=== PATIENT | male | born 1975 | race African-American/Black ===

== ENCOUNTER 2018-01-12 11:19 | Inpatient (IN) | payer OTHER ==
[2018-01-12 12:37] VITALS: BMI 31.7
--- NOTE | 2018-01-12 13:42 | HP ---
CIWA Score - CIWA Score Nausea/Vomitin-Mild Nausea/No Vomiting Muscle Tremors: 4-Moderate,w/Arms Extend Anxiety: 4-Mod. Anxious/Guarded Agitation: 4-Moderately Restless Paroxysmal Sweats: 1-Minimal Palms Moist Orientation: 0-Oriented Tacttile Disturbances: 0-None Auditory Disturbances: 0-None Visual Disturbances: 0-None Headache: 0-None Present CIWA-Ar Total Score: 14 Admission ROS BHS - HPI Chief Complaint: alcohol withdrawal sx Allergies/Adverse Reactions: Allergies Allergy/AdvReac Type Severity Reaction Status Date / Time No Known Allergies Allergy Verified 01/12/18 13:44 History of Present Illness: 42 years old male with long history of alcohol nicotine dependence has anxiety and last substance detox [facility] 10/2017 is admitted to detox Exam Limitations: No Limitations - Ebola screening Have you traveled outside of the country in the last 21 days: No (N) Have you had contact with anyone from an Ebola affected area: No Have you been sick,other than usual withdrawal symptoms: No Do you have a fever: No - Review of Systems Constitutional: Changes in sleep, Weight Stable EENT: reports: No Symptoms Reported Respiratory: reports: No Symptoms reported Cardiac: reports: No Symptoms Reported GI: reports: Nausea, Poor Fluid Intake, Abdominal cramping : reports: No Symptoms Reported Musculoskeletal: reports: No Symptoms Reported Integumentary: reports: No Symptoms Reported Neuro: reports: Tremors Endocrine: reports: No Symptoms Reported Hematology: reports: No Symptoms Reported Psychiatric: reports: Judgement Intact, Orientated x3, Anxious, Depressed Other Systems: Reviewed and Negative Patient History - Patient Medical History Hx Anemia: No Hx Asthma: No Hx Chronic Obstructive Pulmonary Disease (COPD): No Hx Cancer: No Hx Cardiac Disorders: No Hx Congestive Heart Failure: No Hx Hypertension: Yes Hx Hypercholesterolemia: No Hx Pacemaker: No HX Cerebrovascular Accident: No Hx Seizures: No Hx Dementia: No Hx Diabetes: Yes (no treatment x 3 years) Hx Gastrointestinal Disorders: No Hx Liver Disease: No Hx Genitourinary Disorders: No Hx Sexually Transmitted Disorders: Yes (syphilis treated x 3 IM) Hx Renal Disease (ESRD): No Hx Thyroid Disease: No Hx Human Immunodeficiency Virus (HIV): No Hx Hepatitis C: No Hx Depression: Yes Hx Suicide Attempt: No Hx Bipolar Disorder: No Hx Schizophrenia: No - Patient Surgical History Past Surgical History: No - PPD History Previous Implant?: Yes Documented Results: Negative w/o proof Implanted On Prior [facility] Admission?: No PPD to be Administered?: Yes - Smoking Cessation Smoking history: Current every day smoker Have you smoked in the past 12 months: Yes Aproximately how many cigarettes per day: 20 Cigars Per Day: 0 Hx Chewing Tobacco Use: No Initiated information on smoking cessation: Yes 'Breaking Loose' booklet given: 01/12/18 - Substance & Tx. History Hx Alcohol Use: Yes Hx Substance Use: No Substance Use Type: Alcohol, Cocaine Hx Substance Use Treatment: Yes (10/2017 [facility]) Family Disease History - Family Disease History Family Disease History: Diabetes: Grandparent, Mother, Heart Disease: Grandparent, Mother, Other: Father (no contact) Admission Physical Exam BHS - Vital Signs Vital Signs: Vital Signs - 24 hr 01/12/18 12:30 Temperature 98.9 F Pulse Rate 92 H Respiratory 20 Rate Blood Pressure 157/82 - Physical General Appearance: Yes: Nourished, Appropriately Dressed, Mild Distress, Alcohol on Breath, Tremorous, Irritable, Sweating, Anxious HEENTM: Yes: Hearing grossly Normal, Normocephalic, Normal Voice Respiratory: Yes: Chest Non-Tender, Lungs Clear, Normal Breath Sounds, No Respiratory Distress, No Accessory Muscle Use Neck: Yes: Supple, Trachea in good position Breast: Yes: Breasts Symetrical, No Discharge Cardiology: Yes: Regular Rhythm, S1, S2, Tachycardia Abdominal: Yes: Normal Bowel Sounds, Non Tender, Flat, Soft Genitourinary: Yes: Within Normal Limits Back: Yes: Normal Inspection Musculoskeletal: Yes: full range of Motion, Gait Steady, Back pain, Muscle Pain Extremities: Yes: Normal Inspection, Normal Range of Motion, Non-Tender, Tremors Neurological: Yes: Fully Oriented, Alert, Motor Strength 5/5, Normal Response, Depressed Affect Integumentary: Yes: Warm Lymphatic: Yes: Within Normal Limits - Diagnostic (1) Alcohol dependence with uncomplicated withdrawal Current Visit: Yes Status: Acute (2) Nicotine dependence Current Visit: Yes Status: Acute Qualifiers: Nicotine product type: cigarettes Substance use status: in withdrawal Qualified Code(s): F17.213 - Nicotine dependence, cigarettes, with withdrawal (3) History of hypertension Current Visit: Yes Status: Chronic Comment: no treatment x 3 years (4) History of diabetes mellitus, type II Current Visit: Yes Status: Chronic Comment: no treatment x 3 years Cleared for Admission [facility] - Detox or Rehab [facility] Level of Care: Medically Managed Detox Regimen/Protocol: Librium [facility] Breath Alcohol Content Breath Alcohol Content: 0.013 Urine Drug Screen - Control Is Test Valid: Yes - Results Drug Screen Negative: No Urine Drug Screen Results: CARIDAD-Cocaine
[2018-01-12] MEDS ORDERED: MAGNESIUM CITRATE 300 ML BOTTLE PO PRN (13:45)
[2018-01-12] MEDS ORDERED: LOPERAMIDE HCL 2 MG CAPSULE PO PRN (13:45)
[2018-01-12] MEDS ORDERED: MAG HYDROX/AL HYDROX/SIMETH 30 ML UNIT-DOSE CUP PO PRN (13:45)
[2018-01-12] MEDS ORDERED: P-EPHED 60MG/TRIPROLIDI 2.5MG TABLET PO PRN (13:45)
[2018-01-12] MEDS ORDERED: MAGNESIUM HYDROX 2400MG/30ML ORAL SUSPENSION 30 ML CUP PO PRN (13:45)
[2018-01-12] MEDS ORDERED: guaiFENesin/D-METHORPHAN HB 10 ML UNIT-DOSE CUPS PO PRN (13:45)
[2018-01-12] MEDS ORDERED: chlordiazePOXIDE HCL 25 MG CAPSULE PO PRN (13:45)
[2018-01-12] MEDS ORDERED: MENTHOL/PHENOL 1 EACH UD MM PRN (13:45)
[2018-01-12] MEDS ORDERED: IBUPROFEN 400 MG TABLET (FP) PO PRN (13:45)
[2018-01-12] MEDS ORDERED: NICOTINE POLACRILEX 4 MG GUM BUC PRN (13:45)
[2018-01-12] MEDS: chlordiazePOXIDE HCL 25 MG CAPSULE PO SCH ×2 (17:15→22:12)
[2018-01-12] MEDS: NICOTINE 21 MG/24 HOURS TOPICAL PATCH TD SCH (17:19)
[2018-01-12 17:27] LABS: URINE APPEARANCE CLEAR; URINE BILIRUBIN NEGATIVE (<2.0 mg/dL); URINE COLOR YELLOW; URINE GLUCOSE (UA) NEGATIVE (NEGATIVE); URINE KETONE NEGATIVE (NEGATIVE); URINE LEUK ESTERASE NEGATIVE (NEGATIVE); URINE NITRITE NEGATIVE (NEGATIVE); URINE PROTEIN NEGATIVE (NEGATIVE); URINE UROBILINOGEN 4.0 E.U/dl mg/dL (0.2-1.0)
[2018-01-12] MEDS ORDERED: MELATONIN 5 MG TABLETS PO PRN (22:00)
[2018-01-12] MEDS: THIAMINE HCL 100 MG TABLET (FP) PO SCH (22:11)
[2018-01-13] MEDS: chlordiazePOXIDE HCL 25 MG CAPSULE PO SCH ×4 (05:28→22:10)
[2018-01-13 09:49] LABS: ALBUMIN 3.6 g/dl (3.4-5.0); ALK PHOS 74 U/L (45-117); ANION GAP 7 (8-16); BILIRUBIN,TOTAL 0.4 mg/dL (0.2-1.0); BLOOD UREA NITROGEN 14 mg/dL (7-18); CALCIUM 8.7 mg/dL (8.5-10.1); CHLORIDE 107 mmol/L (98-107); CO2 28 mmol/L (21-32); CREATININE 0.9 mg/dL (0.7-1.3); POTASSIUM 4.2 mmol/L (3.5-5.1); SGOT/AST 42 U/L (15-37); SGPT/ALT 42 U/L (12-78); SODIUM 142 mmol/L (136-145)
[2018-01-13 09:51] LABS: GLUCOSE,RANDOM 85 mg/dL (74-106); HEMATOCRIT 42.3 % (35.4-49); HEMOGLOBIN 14.2 GM/dL (11.7-16.9); MCH 29.5 pg (25.7-33.7); MCHC 33.5 g/dl (32.0-35.9); MEAN CELL VOLUME 88.1 fl (80-96); MEAN PLT VOLUME 10.5 fl (7.5-11.1); PLATELET COUNT 193 K/MM3 (134-434); RDW 14.5 % (11.9-15.9); WHITE BLOOD COUNT 8.7 K/mm3 (4.0-10.0)
[2018-01-13] MEDS: PRENATAL VITAMINS W/ FOLIC ACID TABLET (FP) PO SCH (10:35)
[2018-01-13] MEDS: NICOTINE 21 MG/24 HOURS TOPICAL PATCH TD SCH (10:35)
--- NOTE | 2018-01-13 12:54 | PN ---
S CIWA - CIWA Score Nausea/Vomitin-No Nausea/No Vomiting Muscle Tremors: 4-Moderate,w/Arms Extend Anxiety: 4-Mod. Anxious/Guarded Agitation: 4-Moderately Restless Paroxysmal Sweats: 1-Minimal Palms Moist Orientation: 0-Oriented Tacttile Disturbances: 0-None Auditory Disturbances: 0-None Visual Disturbances: 0-None Headache: 2-Mild CIWA-Ar Total Score: 15 BHS Progress Note (SOAP) Subjective: ANXIETY,SWEATS,HEADACHE,FATIGUE, INTERMITTENT SLEEP. Objective: 01/13/18 12:53 Vital Signs 01/13/18 01/13/18 06:09 09:09 Temperature 98.2 F 97.7 F Pulse Rate 96 H 69 Respiratory 18 18 Rate Blood Pressure 127/85 126/83 Laboratory Tests 01/12/18 01/13/18 01/13/18 16:10 06:00 06:00 WBC 8.7 RBC 4.80 Hgb 14.2 Hct 42.3 MCV 88.1 MCH 29.5 MCHC 33.5 RDW 14.5 Plt Count 193 MPV 10.5 Sodium 142 Potassium 4.2 Chloride 107 Carbon Dioxide 28 Anion Gap 7 L BUN 14 Creatinine 0.9 Creat Clearance w eGFR > 60 Random Glucose 85 Calcium 8.7 Total Bilirubin 0.4 AST 42 H ALT 42 Alkaline Phosphatase 74 Total Protein 7.0 Albumin 3.6 Urine Color Yellow Urine Appearance Clear Urine pH 6.0 Ur Specific [place] 1.020 Urine Protein Negative Urine Glucose (UA) Negative Urine Ketones Negative Urine Blood Negative Urine Nitrite Negative Urine Bilirubin Negative Urine Urobilinogen 4.0 e.u/dl Ur Leukocyte Esterase Negative RPR Titer 01/13/18 06:00 WBC RBC Hgb Hct MCV MCH MCHC RDW Plt Count MPV Sodium Potassium Chloride Carbon Dioxide Anion Gap BUN Creatinine Creat Clearance w eGFR Random Glucose Calcium Total Bilirubin AST ALT Alkaline Phosphatase Total Protein Albumin Urine Color Urine Appearance Urine pH Ur Specific [place] Urine Protein Urine Glucose (UA) Urine Ketones Urine Blood Urine Nitrite Urine Bilirubin Urine Urobilinogen Ur Leukocyte Esterase RPR Titer Nonreactive Assessment: 01/13/18 12:53 WITHDRAWAL SX Plan: CONTINUE DETOX. TYLENOL OR MOTRIN PRN FOR HEADACHE.
--- NOTE | 2018-01-13 13:58 | EKG ---
Test Reason : Blood Pressure : / mmHG Vent. Rate : 068 BPM Atrial Rate : 068 BPM P-R Int : 154 ms QRS Dur : 082 ms QT Int : 392 ms P-R-T Axes : 056 010 013 degrees QTc Int : 416 ms NORMAL SINUS RHYTHM WITH SINUS ARRHYTHMIA POSSIBLE LEFT ATRIAL ENLARGEMENT BORDERLINE ECG NO PREVIOUS ECGS AVAILABLE Confirmed by Marko Fagan MD ([id number]) on 01/13/2018 1:57:30 PM Referred By: Confirmed By:Marko Fagan MD
--- NOTE | 2018-01-13 17:06 | CONSULT ---
[facility] Psychiatric Consult - Data Date of interview: 01/13/18 Admission source: [facility] Identifying data: First admission to [facility] for this 42 y/o AA male seeking detox treatment on for alcohol and cocaine (crack) dependence.Patient is single without dependents,homeless,unemployed and supported on food stamps. Substance Abuse History: Confirmed by patient in this session.Smoking history: Current every day smoker. Have you smoked in the past 12 months: Yes. Aproximately how many cigarettes per day: 20. Cigars Per Day: 0. Hx Chewing Tobacco Use: No. Initiated information on smoking cessation: Yes. 'Breaking Loose' booklet given: 01/12/18. - Substance & Tx. History. Hx Alcohol Use: Yes. Hx Substance Use: No. Substance Use Type: Alcohol, Cocaine. Hx Substance Use Treatment: Yes (10/2017 [facility] Medical History: Hypertension,diabetes mellitus and a history of treatment for syphilis. Psychiatric History: Patient denies. Physical/Sexual Abuse/Trauma History: Patient denies. Additional Comment: Urine Drug Screen Results: CARIDAD-Cocaine.Noted. Mental Status Exam - Mental Status Exam Alert and Oriented to: Time, Place, Person Cognitive Function: Good Patient Appearance: Well Groomed Mood: Withdrawn Affect: Appropriate, Normal Range Patient Behavior: Fatigued, Appropriate, Cooperative Speech Pattern: Clear, Appropriate Voice Loudness: Normal Thought Process: Intact, Goal Oriented Thought Disorder: Not Present Hallucinations: Denies Suicidal Ideation: Denies Homicidal Ideation: Denies Insight/Judgement: Poor Sleep: Poorly, Difficulty falling asleep Appetite: Good Muscle strength/Tone: Normal Gait/Station: Normal Psychiatric Findings - Problem List ([place] 1, 2,3) (1) Alcohol dependence with uncomplicated withdrawal Current Visit: Yes Status: Acute (2) Cocaine dependence Current Visit: Yes Status: Acute (3) Nicotine dependence Current Visit: Yes Status: Acute Qualifiers: Nicotine product type: cigarettes Substance use status: in withdrawal Qualified Code(s): F17.213 - Nicotine dependence, cigarettes, with withdrawal (4) Insomnia Current Visit: Yes Status: Acute - Initial Treatment Plan Initial Treatment Plan: Psychoeducation.Sleep hygiene.Detoxification.Ambien 10 mg po hs prn.Patient is made aware of parasomnias.Agrees to this careplan.Observation.
[2018-01-13] MEDS: THIAMINE HCL 100 MG TABLET (FP) PO SCH (22:10)
[2018-01-13] MEDS: ZOLPIDEM TARTRATE 10 MG TABLET (PARK CARE ONLY) PO PRN (22:10)
[2018-01-14] MEDS: chlordiazePOXIDE HCL 25 MG CAPSULE PO SCH ×2 (05:27→10:50)
[2018-01-14] MEDS: ACETAMINOPHEN 325 MG TABLET (FP) PO PRN (08:42)
[2018-01-14] MEDS: PRENATAL VITAMINS W/ FOLIC ACID TABLET (FP) PO SCH (10:49)
[2018-01-14] MEDS: NICOTINE 21 MG/24 HOURS TOPICAL PATCH TD SCH (10:49)
--- NOTE | 2018-01-14 11:43 | PN ---
[facility] CIWA - CIWA Score Nausea/Vomitin (DIARRHEA) Muscle Tremors: 4-Moderate,w/Arms Extend Anxiety: 4-Mod. Anxious/Guarded Agitation: 3 Paroxysmal Sweats: 1-Minimal Palms Moist Orientation: 0-Oriented Tacttile Disturbances: 0-None Auditory Disturbances: 0-None Visual Disturbances: 0-None Headache: 0-None Present CIWA-Ar Total Score: 15 BHS Progress Note (SOAP) Subjective: PT STATES FEELING "TERRIBLE". C/O DIARRHEA X 4 LAST NIGHT. PT REPORTS IMODIUM GIVEN. ANXIETY,INTERMITTENT SLEEP,FATIGUE. Objective: 01/14/18 11:41 Vital Signs 01/14/18 01/14/18 01/14/18 06:15 09:17 09:18 Temperature 98.5 F 98.6 F 98.6 F Pulse Rate 75 75 75 Respiratory 18 18 18 Rate Blood Pressure 117/75 135/87 135/87 Laboratory Tests 01/12/18 01/13/18 01/13/18 16:10 06:00 06:00 WBC 8.7 RBC 4.80 Hgb 14.2 Hct 42.3 MCV 88.1 MCH 29.5 MCHC 33.5 RDW 14.5 Plt Count 193 MPV 10.5 Sodium 142 Potassium 4.2 Chloride 107 Carbon Dioxide 28 Anion Gap 7 L BUN 14 Creatinine 0.9 Creat Clearance w eGFR > 60 Random Glucose 85 Calcium 8.7 Total Bilirubin 0.4 AST 42 H ALT 42 Alkaline Phosphatase 74 Total Protein 7.0 Albumin 3.6 Urine Color Yellow Urine Appearance Clear Urine pH 6.0 Ur Specific [place] 1.020 Urine Protein Negative Urine Glucose (UA) Negative Urine Ketones Negative Urine Blood Negative Urine Nitrite Negative Urine Bilirubin Negative Urine Urobilinogen 4.0 e.u/dl Ur Leukocyte Esterase Negative RPR Titer 01/13/18 06:00 WBC RBC Hgb Hct MCV MCH MCHC RDW Plt Count MPV Sodium Potassium Chloride Carbon Dioxide Anion Gap BUN Creatinine Creat Clearance w eGFR Random Glucose Calcium Total Bilirubin AST ALT Alkaline Phosphatase Total Protein Albumin Urine Color Urine Appearance Urine pH Ur Specific [place] Urine Protein Urine Glucose (UA) Urine Ketones Urine Blood Urine Nitrite Urine Bilirubin Urine Urobilinogen Ur Leukocyte Esterase RPR Titer Nonreactive Assessment: 01/14/18 11:41 WITHDRAWAL SX Plan: CONTINUE DETOX IMODIUM FOR DIARRHEA; CHANGE TO LOMOTIL IF NOT EFFECTIVE.
[2018-01-14] MEDS: chlordiazePOXIDE 5 MG CAPSULE PO SCH ×2 (17:22→22:46)
[2018-01-14] MEDS: THIAMINE HCL 100 MG TABLET (FP) PO SCH (22:46)
[2018-01-14] MEDS: ZOLPIDEM TARTRATE 10 MG TABLET (PARK CARE ONLY) PO PRN (22:46)
[2018-01-15] MEDS: chlordiazePOXIDE 5 MG CAPSULE PO SCH ×2 (04:43→10:32)
[2018-01-15] MEDS: NICOTINE 21 MG/24 HOURS TOPICAL PATCH TD SCH (10:32)
[2018-01-15] MEDS: PRENATAL VITAMINS W/ FOLIC ACID TABLET (FP) PO SCH (10:32)
[2018-01-15] MEDS: ACETAMINOPHEN 325 MG TABLET (FP) PO PRN (10:33)
--- NOTE | 2018-01-15 12:09 | PN ---
BHS Progress Note (SOAP) Subjective: C/O HEADCHE AND INTERMITTENT SLEEP X 2 DAYS- REPORTS HE HAD ONE DOSE OF TYLENOL YESTERDAY.FATIGUE Objective: 01/15/18 12:08 Vital Signs 01/15/18 01/15/18 05:59 09:12 Temperature 97.5 F L 97.5 F L Pulse Rate 79 76 Respiratory 18 18 Rate Blood Pressure 131/86 114/73 Laboratory Tests 01/12/18 01/13/18 01/13/18 16:10 06:00 06:00 WBC 8.7 RBC 4.80 Hgb 14.2 Hct 42.3 MCV 88.1 MCH 29.5 MCHC 33.5 RDW 14.5 Plt Count 193 MPV 10.5 Sodium 142 Potassium 4.2 Chloride 107 Carbon Dioxide 28 Anion Gap 7 L BUN 14 Creatinine 0.9 Creat Clearance w eGFR > 60 Random Glucose 85 Calcium 8.7 Total Bilirubin 0.4 AST 42 H ALT 42 Alkaline Phosphatase 74 Total Protein 7.0 Albumin 3.6 Urine Color Yellow Urine Appearance Clear Urine pH 6.0 Ur Specific [place] 1.020 Urine Protein Negative Urine Glucose (UA) Negative Urine Ketones Negative Urine Blood Negative Urine Nitrite Negative Urine Bilirubin Negative Urine Urobilinogen 4.0 e.u/dl Ur Leukocyte Esterase Negative RPR Titer 01/13/18 06:00 WBC RBC Hgb Hct MCV MCH MCHC RDW Plt Count MPV Sodium Potassium Chloride Carbon Dioxide Anion Gap BUN Creatinine Creat Clearance w eGFR Random Glucose Calcium Total Bilirubin AST ALT Alkaline Phosphatase Total Protein Albumin Urine Color Urine Appearance Urine pH Ur Specific [place] Urine Protein Urine Glucose (UA) Urine Ketones Urine Blood Urine Nitrite Urine Bilirubin Urine Urobilinogen Ur Leukocyte Esterase RPR Titer Nonreactive Assessment: 01/15/18 12:08 WITHDRAWAL SX Plan: CONTINUE DETOX INSTRUCTED PT TO ASK FOR MOTRIN OR TYLENOL NEEDED DIRECTED.
[2018-01-15] MEDS ORDERED: hydrOXYzine PAMOATE 50 MG CAPSULE (FP) PO PRN (14:58)
[2018-01-15] MEDS: chlordiazePOXIDE HCL 10 MG CAPSULE PO SCH ×2 (17:45→22:08)
[2018-01-15] MEDS: THIAMINE HCL 100 MG TABLET (FP) PO SCH (22:08)
[2018-01-15] MEDS: ZOLPIDEM TARTRATE 10 MG TABLET (PARK CARE ONLY) PO PRN (22:08)
[2018-01-16] MEDS: chlordiazePOXIDE HCL 10 MG CAPSULE PO SCH ×2 (05:13→10:32)
[2018-01-16 09:20] VITALS: BP 122/83; PULSE 94; TEMP 99.3
[2018-01-16] MEDS: NICOTINE 21 MG/24 HOURS TOPICAL PATCH TD SCH (10:30)
[2018-01-16] MEDS: PRENATAL VITAMINS W/ FOLIC ACID TABLET (FP) PO SCH (10:32)
--- NOTE | 2018-01-16 13:00 | PN ---
BHS Progress Note (SOAP) Subjective: DETOX TAPER COMPLETED, ALERT O X3. NAD. PT REFERRED TO REHAB [address] [place] [address] TODAY. Objective: 01/16/18 13:02 Vital Signs 01/16/18 01/16/18 06:20 09:19 Temperature 98.6 F 99.3 F Pulse Rate 78 94 H Respiratory 18 18 Rate Blood Pressure 110/65 122/83 Laboratory Tests 01/12/18 01/13/18 01/13/18 16:10 06:00 06:00 WBC 8.7 RBC 4.80 Hgb 14.2 Hct 42.3 MCV 88.1 MCH 29.5 MCHC 33.5 RDW 14.5 Plt Count 193 MPV 10.5 Sodium 142 Potassium 4.2 Chloride 107 Carbon Dioxide 28 Anion Gap 7 L BUN 14 Creatinine 0.9 Creat Clearance w eGFR > 60 Random Glucose 85 Calcium 8.7 Total Bilirubin 0.4 AST 42 H ALT 42 Alkaline Phosphatase 74 Total Protein 7.0 Albumin 3.6 Urine Color Yellow Urine Appearance Clear Urine pH 6.0 Ur Specific [place] 1.020 Urine Protein Negative Urine Glucose (UA) Negative Urine Ketones Negative Urine Blood Negative Urine Nitrite Negative Urine Bilirubin Negative Urine Urobilinogen 4.0 e.u/dl Ur Leukocyte Esterase Negative RPR Titer 01/13/18 06:00 WBC RBC Hgb Hct MCV MCH MCHC RDW Plt Count MPV Sodium Potassium Chloride Carbon Dioxide Anion Gap BUN Creatinine Creat Clearance w eGFR Random Glucose Calcium Total Bilirubin AST ALT Alkaline Phosphatase Total Protein Albumin Urine Color Urine Appearance Urine pH Ur Specific [place] Urine Protein Urine Glucose (UA) Urine Ketones Urine Blood Urine Nitrite Urine Bilirubin Urine Urobilinogen Ur Leukocyte Esterase RPR Titer Nonreactive Assessment: 01/16/18 13:02 MEDICALLY STABLE Plan: D/C PT TODAY TO REHAB.
--- NOTE | 2018-01-16 13:06 | DS ---
[facility] Detox Discharge Summary Admission Date: 01/12/18 Discharge Date: 01/16/18 - History Present History: Alcohol Dependence Additional Comments: DETOX TAPER COMPLETED. ALERT O X3. NAD. PT REPORTS HE HAS NO PMD BUT GOES TO THE [facility] FOR CARE. PT HAS BEEN REFERRED TO REHAB TODAY AT [address] Pertinent Past History: PLEASE SEE DX BELOW - Physical Exam Results Vital Signs: Vital Signs Temperature 99.3 F 01/16/18 09:19 Pulse Rate 94 H 01/16/18 09:19 Respiratory Rate 18 01/16/18 09:19 Blood Pressure 122/83 01/16/18 09:19 O2 Sat by Pulse Oximetry (%) Pertinent Admission Physical Exam Findings: WITHDRAWAL SX Laboratory Tests 01/12/18 01/13/18 01/13/18 16:10 06:00 06:00 WBC 8.7 RBC 4.80 Hgb 14.2 Hct 42.3 MCV 88.1 MCH 29.5 MCHC 33.5 RDW 14.5 Plt Count 193 MPV 10.5 Sodium 142 Potassium 4.2 Chloride 107 Carbon Dioxide 28 Anion Gap 7 L BUN 14 Creatinine 0.9 Creat Clearance w eGFR > 60 Random Glucose 85 Calcium 8.7 Total Bilirubin 0.4 AST 42 H ALT 42 Alkaline Phosphatase 74 Total Protein 7.0 Albumin 3.6 Urine Color Yellow Urine Appearance Clear Urine pH 6.0 Ur Specific [place] 1.020 Urine Protein Negative Urine Glucose (UA) Negative Urine Ketones Negative Urine Blood Negative Urine Nitrite Negative Urine Bilirubin Negative Urine Urobilinogen 4.0 e.u/dl Ur Leukocyte Esterase Negative RPR Titer 01/13/18 06:00 WBC RBC Hgb Hct MCV MCH MCHC RDW Plt Count MPV Sodium Potassium Chloride Carbon Dioxide Anion Gap BUN Creatinine Creat Clearance w eGFR Random Glucose Calcium Total Bilirubin AST ALT Alkaline Phosphatase Total Protein Albumin Urine Color Urine Appearance Urine pH Ur Specific [place] Urine Protein Urine Glucose (UA) Urine Ketones Urine Blood Urine Nitrite Urine Bilirubin Urine Urobilinogen Ur Leukocyte Esterase RPR Titer Nonreactive - Treatment Hospital Course: Detox Protocol Followed, Detoxed Safely, Responded well, Discharged Condition Good, Rehab Referral Accepted Patient has Accepted a Rehab Referral to: [facility] [address] [place] [address] - Medication Discharge Medications: Ambulatory Orders NK [No Known Home Medication] 01/12/18 - Diagnosis (1) Alcohol dependence with uncomplicated withdrawal Current Visit: Yes Status: Acute (2) Nicotine dependence Current Visit: Yes Status: Acute Qualifiers: Nicotine product type: cigarettes Substance use status: in withdrawal Qualified Code(s): F17.213 - Nicotine dependence, cigarettes, with withdrawal (3) History of diabetes mellitus, type II Current Visit: Yes Status: Suspected (4) History of hypertension Current Visit: Yes Status: Chronic (5) Diarrhea due to alcohol intake Current Visit: Yes Status: Acute (6) Head ache Current Visit: Yes Status: Acute Qualifiers: Headache type: unspecified - AMA Did Patient Leave Against Medical Advice: No
== END 2018-01-16 11:52 | disposition other institution (70) | DRG 774 ==
LOC: YASAS 11:19 → Y3N 14:38
PROVIDERS: ADMIT Surgery; ATTEND Surgery
PROC: HZ2ZZZZ Detoxification Services for Substance Abuse Treatment (ICD-10-PCS; principal; 2018-01-12)
DX: F10.230 Alcohol dependence with withdrawal, uncomplicated (principal); F14.20 Cocaine dependence, uncomplicated; F17.213 Nicotine dependence, cigarettes, with withdrawal; G47.00 Insomnia, unspecified; I10 Essential (primary) hypertension; E11.9 Type 2 diabetes mellitus without complications; R51 Headache; R19.7 Diarrhea, unspecified; T51.0X1A Toxic effect of ethanol, accidental (unintentional), initial encounter; K52.1 Toxic gastroenteritis and colitis; Z86.19 Personal history of other infectious and parasitic diseases; Z59.0 Homelessness
CPT/HCPCS: 36415; 80053; 81003; 85027; 86593; 93005; 93010

== ENCOUNTER 2018-01-16 12:09 | Inpatient (IN) | payer OTHER ==
--- NOTE | 2018-01-16 13:15 | HP ---
Psychiatrist Admission - Data Date of interview: 01/16/18 Admission source: 3N Identifying data: This is the first [facility] admission for this 42 years old single Black male, unemployed on food stamp, homeless Medical History: Significant for hypertension, diabetes mellitus and a history of treatment for syphilis according to [facility] information. However patient reports he has never been treated for high blood pressure or diabetes in his life. 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 As far as diabetes is concern, I had high blood sugar once but after loosing weight my blood sugar became normal". Smokes cigaretes 1 ppd Psychiatric History: Denies history of previous psychiatric treatment Physical/Sexual Abuse/Trauma History: Denies history of emotional, physical or sexual abuse as well as DV relationship.No service Additional Comment: Reports having a recent violation for disorderly conduct. He has a court date on Jan 24 or Jan 25 Allergies/Adverse Reactions: Allergies Allergy/AdvReac Type Severity Reaction Status Date / Time No Known Allergies Allergy Verified 01/12/18 13:44 Date of last physical exam: 01/12/18 Concur with the findings of this exam: Yes - Substance Abuse/Tx History Hx Alcohol Use: Yes Hx Substance Use: Yes Substance Use Type: Alcohol (Started drinking alcohol at age 13, consumes one pint of vodka & 1-2p of beer daily. Last drank on 01/12/18), Cocaine (Started smoking crack cocaine at age 27, consumes $20-40 worth daily. Last smoked on ) Hx Substance Use Treatment: Yes (4 previous inpt detox & 2 inpt rehab) Mental Status Exam - Mental Status Exam Alert and Oriented to: Time, Place, Person Cognitive Function: Fair Patient Appearance: Well Groomed Mood: Depressed Affect: Appropriate Patient Behavior: Cooperative Speech Pattern: Clear Voice Loudness: Normal Thought Process: Intact Thought Disorder: Not Present Hallucinations: Denies Suicidal Ideation: Denies Homicidal Ideation: Denies Insight/Judgement: Fair Sleep: Poorly Appetite: Fair Muscle strength/Tone: Normal Gait/Station: Normal Psychiatric Findings - Problem List ([place] 1, 2,3) (1) Alcohol dependence Current Visit: Yes Status: Acute (2) Cocaine dependence Current Visit: No Status: Acute (3) Nicotine dependence Current Visit: No Status: Chronic Qualifiers: Nicotine product type: cigarettes Substance use status: in withdrawal Qualified Code(s): F17.213 - Nicotine dependence, cigarettes, with withdrawal (4) Substance induced mood disorder Current Visit: Yes Status: Acute (5) Substance-induced sleep disorder Current Visit: Yes Status: Acute (6) History of hypertension Current Visit: No Status: Chronic Comment: no treatment x 3 years (7) History of diabetes mellitus, type II Current Visit: No Status: Suspected Comment: no treatment x 3 years - Initial Treatment Plan Initial Treatment Plan: 1) Start Melatonin 5 mg po HS prn for insomnia. 2) Monitor progress
[2018-01-16] MEDS ORDERED: MAG HYDROX/AL HYDROX/SIMETH 30 ML UNIT-DOSE CUP PO PRN (14:11)
[2018-01-16] MEDS ORDERED: MENTHOL/PHENOL 1 EACH UD MM PRN (14:11)
[2018-01-16] MEDS ORDERED: LOPERAMIDE HCL 2 MG CAPSULE PO PRN (14:11)
[2018-01-16] MEDS ORDERED: guaiFENesin/D-METHORPHAN HB 10 ML UNIT-DOSE CUPS PO PRN (14:11)
[2018-01-16] MEDS ORDERED: MAGNESIUM CITRATE 300 ML BOTTLE PO PRN (14:11)
[2018-01-16] MEDS ORDERED: P-EPHED 60MG/TRIPROLIDI 2.5MG TABLET PO PRN (14:11)
[2018-01-16] MEDS ORDERED: MAGNESIUM HYDROX 2400MG/30ML ORAL SUSPENSION 30 ML CUP PO PRN (14:11)
[2018-01-16] MEDS ORDERED: ACETAMINOPHEN 325 MG TABLET (FP) PO PRN (14:11)
[2018-01-16] MEDS ORDERED: IBUPROFEN 400 MG TABLET (FP) PO PRN (14:11)
--- NOTE | 2018-01-16 14:13 | HP ---
[facility] Re[facility] Assess/Revision - Admission History Ad[facility] to Rehab from: [facility] Date of Admission to Rehab: 01/16/18 - Vital signs Vital Signs: Vital Signs Period Temp Pulse Resp BP Sys/Palm Pulse Ox Last 24 Hr 97.6 F 93 19 136/77 - Findings Detox History & Physical reviewed: Yes Concur with findings: Yes Comments/Additional Findings: detox completed. referred to rehab today.
[2018-01-16] MEDS ORDERED: NICOTINE POLACRILEX 4 MG GUM BUC PRN (14:15)
[2018-01-16] MEDS: NICOTINE 21 MG/24 HOURS TOPICAL PATCH TD SCH (15:21)
[2018-01-16] MEDS: hydrOXYzine PAMOATE 50 MG CAPSULE (FP) PO PRN (21:41)
[2018-01-16] MEDS: THIAMINE HCL 100 MG TABLET (FP) PO SCH (21:42)
[2018-01-16] MEDS: MELATONIN 5 MG TABLETS PO PRN (21:42)
[2018-01-16] MEDS: TOLNAFTATE 1% CREAM 15 GM TUBE TP SCH (21:52)
[2018-01-17] MEDS: NICOTINE 21 MG/24 HOURS TOPICAL PATCH TD SCH (11:11)
[2018-01-17] MEDS: PRENATAL VITAMINS W/ FOLIC ACID TABLET (FP) PO SCH (11:11)
[2018-01-17] MEDS: TOLNAFTATE 1% CREAM 15 GM TUBE TP SCH ×2 (11:12→21:58)
[2018-01-17] MEDS: MELATONIN 5 MG TABLETS PO PRN (21:57)
[2018-01-17] MEDS: THIAMINE HCL 100 MG TABLET (FP) PO SCH (21:57)
[2018-01-18] MEDS: NICOTINE 21 MG/24 HOURS TOPICAL PATCH TD SCH (10:17)
[2018-01-18] MEDS: PRENATAL VITAMINS W/ FOLIC ACID TABLET (FP) PO SCH (10:17)
[2018-01-18] MEDS: TOLNAFTATE 1% CREAM 15 GM TUBE TP SCH ×2 (10:17→21:36)
[2018-01-18] MEDS: MELATONIN 5 MG TABLETS PO PRN (21:35)
[2018-01-18] MEDS: THIAMINE HCL 100 MG TABLET (FP) PO SCH (21:35)
[2018-01-18] MEDS: hydrOXYzine PAMOATE 50 MG CAPSULE (FP) PO PRN (21:36)
[2018-01-19] MEDS: NICOTINE 21 MG/24 HOURS TOPICAL PATCH TD SCH (10:24)
[2018-01-19] MEDS: PRENATAL VITAMINS W/ FOLIC ACID TABLET (FP) PO SCH (10:24)
[2018-01-19] MEDS: TOLNAFTATE 1% CREAM 15 GM TUBE TP SCH ×2 (10:24→21:52)
[2018-01-19] MEDS: THIAMINE HCL 100 MG TABLET (FP) PO SCH (21:51)
[2018-01-19] MEDS: MELATONIN 5 MG TABLETS PO PRN (21:51)
[2018-01-19] MEDS: hydrOXYzine PAMOATE 50 MG CAPSULE (FP) PO PRN (21:51)
[2018-01-20] MEDS: TOLNAFTATE 1% CREAM 15 GM TUBE TP SCH ×2 (10:27→21:53)
[2018-01-20] MEDS: PRENATAL VITAMINS W/ FOLIC ACID TABLET (FP) PO SCH (10:27)
[2018-01-20] MEDS: NICOTINE 21 MG/24 HOURS TOPICAL PATCH TD SCH (10:27)
[2018-01-20] MEDS: THIAMINE HCL 100 MG TABLET (FP) PO SCH (21:53)
[2018-01-21] MEDS: NICOTINE 21 MG/24 HOURS TOPICAL PATCH TD SCH (10:28)
[2018-01-21] MEDS: PRENATAL VITAMINS W/ FOLIC ACID TABLET (FP) PO SCH (10:28)
[2018-01-21] MEDS: TOLNAFTATE 1% CREAM 15 GM TUBE TP SCH ×2 (10:28→21:29)
[2018-01-21] MEDS: THIAMINE HCL 100 MG TABLET (FP) PO SCH (21:29)
[2018-01-21] MEDS: MELATONIN 5 MG TABLETS PO PRN (21:29)
[2018-01-22] MEDS: NICOTINE 21 MG/24 HOURS TOPICAL PATCH TD SCH (10:26)
[2018-01-22] MEDS: TOLNAFTATE 1% CREAM 15 GM TUBE TP SCH ×2 (10:26→22:36)
[2018-01-22] MEDS: PRENATAL VITAMINS W/ FOLIC ACID TABLET (FP) PO SCH (10:26)
[2018-01-22] MEDS: hydrOXYzine PAMOATE 50 MG CAPSULE (FP) PO PRN (21:44)
[2018-01-22] MEDS: THIAMINE HCL 100 MG TABLET (FP) PO SCH (21:44)
[2018-01-22] MEDS: MELATONIN 5 MG TABLETS PO PRN (21:45)
[2018-01-23] MEDS: PRENATAL VITAMINS W/ FOLIC ACID TABLET (FP) PO SCH (10:43)
[2018-01-23] MEDS: NICOTINE 21 MG/24 HOURS TOPICAL PATCH TD SCH (10:44)
[2018-01-23] MEDS: TOLNAFTATE 1% CREAM 15 GM TUBE TP SCH ×2 (10:44→23:07)
[2018-01-23] MEDS: hydrOXYzine PAMOATE 50 MG CAPSULE (FP) PO PRN (21:56)
[2018-01-23] MEDS: MELATONIN 5 MG TABLETS PO PRN (21:56)
[2018-01-23] MEDS: THIAMINE HCL 100 MG TABLET (FP) PO SCH (21:56)
[2018-01-24] MEDS: hydrOXYzine PAMOATE 50 MG CAPSULE (FP) PO PRN ×2 (06:20→22:53)
[2018-01-24] MEDS: NICOTINE 21 MG/24 HOURS TOPICAL PATCH TD SCH (10:42)
[2018-01-24] MEDS: PRENATAL VITAMINS W/ FOLIC ACID TABLET (FP) PO SCH (10:42)
[2018-01-24] MEDS: TOLNAFTATE 1% CREAM 15 GM TUBE TP SCH ×2 (10:42→22:11)
[2018-01-24] MEDS: THIAMINE HCL 100 MG TABLET (FP) PO SCH (22:11)
[2018-01-24] MEDS: MELATONIN 5 MG TABLETS PO PRN (22:53)
[2018-01-25] MEDS: TOLNAFTATE 1% CREAM 15 GM TUBE TP SCH ×2 (10:31→21:45)
[2018-01-25] MEDS: PRENATAL VITAMINS W/ FOLIC ACID TABLET (FP) PO SCH (10:31)
[2018-01-25] MEDS: NICOTINE 21 MG/24 HOURS TOPICAL PATCH TD SCH (10:31)
[2018-01-25] MEDS: hydrOXYzine PAMOATE 50 MG CAPSULE (FP) PO PRN (21:45)
[2018-01-25] MEDS: THIAMINE HCL 100 MG TABLET (FP) PO SCH (21:45)
[2018-01-25] MEDS: MELATONIN 5 MG TABLETS PO PRN (21:45)
[2018-01-26] MEDS: TOLNAFTATE 1% CREAM 15 GM TUBE TP SCH (10:51)
[2018-01-26] MEDS: NICOTINE 21 MG/24 HOURS TOPICAL PATCH TD SCH (10:51)
[2018-01-26] MEDS: PRENATAL VITAMINS W/ FOLIC ACID TABLET (FP) PO SCH (10:51)
[2018-01-26] MEDS: MELATONIN 5 MG TABLETS PO PRN (21:58)
[2018-01-26] MEDS: THIAMINE HCL 100 MG TABLET (FP) PO SCH (21:58)
[2018-01-26] MEDS: hydrOXYzine PAMOATE 50 MG CAPSULE (FP) PO PRN (21:58)
[2018-01-27] MEDS: PRENATAL VITAMINS W/ FOLIC ACID TABLET (FP) PO SCH (10:43)
[2018-01-27] MEDS: NICOTINE 21 MG/24 HOURS TOPICAL PATCH TD SCH (10:44)
[2018-01-27] MEDS: THIAMINE HCL 100 MG TABLET (FP) PO SCH (21:50)
[2018-01-27] MEDS: MELATONIN 5 MG TABLETS PO PRN (21:51)
[2018-01-27] MEDS: hydrOXYzine PAMOATE 50 MG CAPSULE (FP) PO PRN (21:51)
[2018-01-28] MEDS: PRENATAL VITAMINS W/ FOLIC ACID TABLET (FP) PO SCH (10:46)
[2018-01-28] MEDS: NICOTINE 21 MG/24 HOURS TOPICAL PATCH TD SCH (10:48)
[2018-01-28] MEDS: MELATONIN 5 MG TABLETS PO PRN (21:33)
[2018-01-28] MEDS: hydrOXYzine PAMOATE 50 MG CAPSULE (FP) PO PRN (21:34)
[2018-01-28] MEDS: THIAMINE HCL 100 MG TABLET (FP) PO SCH (21:34)
[2018-01-29] MEDS: NICOTINE 21 MG/24 HOURS TOPICAL PATCH TD SCH (09:45)
[2018-01-29] MEDS: PRENATAL VITAMINS W/ FOLIC ACID TABLET (FP) PO SCH (09:45)
[2018-01-29] MEDS: THIAMINE HCL 100 MG TABLET (FP) PO SCH (21:20)
[2018-01-29] MEDS: hydrOXYzine PAMOATE 50 MG CAPSULE (FP) PO PRN (21:20)
[2018-01-30 07:22] VITALS: BP 109/75; PULSE 66; TEMP 98.8
--- NOTE | 2018-01-30 08:47 | PN ---
Psychiatric Progress Note Vital Signs: Vital Signs Period Temp Pulse Resp BP Sys/Palm Pulse Ox Last 24 Hr 98.8 F 66 18-18 109/75 Date of Session: 01/30/18 Chief Complaint:: Discharge visit Current Medications: Active Medications Generic Name Dose Route Start Last Admin Trade Name Freq PRN Reason Stop Dose Admin Acetaminophen 650 mg 01/16/18 14:11 01/16/18 21:42 Tylenol - PO 650 mg Q4H PRN Administration FEVER Al Hydroxide/Mg Hydroxide 30 ml 01/16/18 14:11 Mylanta Oral Suspension - PO Q6H PRN DYSPEPSIA Eucalyptus/Menthol/Phenol/Sorbitol 1 each 01/16/18 14:11 Cepastat Lozenge - MM Q4H PRN SORE THROAT Guaifenesin 10 ml 01/16/18 14:11 Robitussin Dm - PO Q6H PRN COUGH Hydroxyzine Pamoate 50 mg 01/16/18 14:11 01/29/18 21:20 Vistaril - PO 50 mg Q4H PRN Administration AGITATION Ibuprofen 400 mg 01/16/18 14:11 Motrin - PO Q6H PRN Pain Level 4-6 Loperamide HCl 4 mg 01/16/18 14:11 Imodium - PO Q6H PRN DIARRHEA Magnesium Citrate 300 ml 01/16/18 14:11 Citroma - PO Q48H PRN CONSTIPATION Magnesium Hydroxide 30 ml 01/16/18 14:11 Milk Of Magnesia - PO DAILY PRN CONSTIPATION Melatonin 5 mg 01/16/18 22:00 01/28/18 21:33 Melatonin PO 5 mg HS PRN Administration INSOMNIA Nicotine 21 mg 01/16/18 14:15 01/29/18 09:45 Nicoderm Patch - TD Not Given DAILY HAYDEN Nicotine Polacrilex 4 mg 01/16/18 14:15 Nicorette Gum - BUC Q2H PRN NICOTINE REPLACEMENT RX Multivit/Folic Acid/Iron 1 tab 01/17/18 10:00 01/29/18 09:45 Vitamins ([facility]) - PO 1 tab DAILY HAYDEN Administration Pseudoephedrine/Triprolidine 1 combo 01/16/18 14:11 Actifed - PO TID PRN NASAL CONGESTION Thiamine HCl 100 mg 01/16/18 22:00 01/29/18 21:20 Vitamin B1 - PO 100 mg HS HAYDEN Administration Current Side Effect: No Lab tests ordered: No Lab tests reviewed: Yes Provider note:: [facility] in [facility] Total face to face time:: 25
[2018-01-30] MEDS: NICOTINE 21 MG/24 HOURS TOPICAL PATCH TD SCH (09:56)
[2018-01-30] MEDS: PRENATAL VITAMINS W/ FOLIC ACID TABLET (FP) PO SCH (09:56)
== END 2018-01-30 10:00 | disposition home or self-care (01) | DRG 772 ==
LOC: YASAS 12:09 → Y5N 12:11
PROVIDERS: ADMIT Psychiatry & Neurology Psychiatry; ATTEND Psychiatry & Neurology Psychiatry
PROC: HZ42ZZZ Group Counseling for Substance Abuse Treatment, Cognitive-Behavioral (ICD-10-PCS; principal; 2018-01-16)
DX: F10.20 Alcohol dependence, uncomplicated (principal); F14.20 Cocaine dependence, uncomplicated; F17.213 Nicotine dependence, cigarettes, with withdrawal; F19.24 Other psychoactive substance dependence with psychoactive substance-induced mood disorder; F19.282 Other psychoactive substance dependence with psychoactive substance-induced sleep disorder; Z87.438 Personal history of other diseases of male genital organs; Z59.0 Homelessness
CPT/HCPCS: 36415; 87389